=== PATIENT | female | born 1945 | race Caucasian/White ===

== ENCOUNTER → 2018-03-14 | Outpatient (CLI) | payer OTHER | LOC: M.RAD 10:15 | DX: Z12.31 Encounter for screening mammogram for malignant neoplasm of breast (principal) ==

== ENCOUNTER → 2018-05-28 | Outpatient (CLI) | payer OTHER ==
[2018-05-28 11:10] LABS: CREATININE 0.9 mg/dL (0.6-1.3)
== END ==
LOC: M.LAB 05-27 12:30 → M.MRI 05-27 13:30 → M.LAB 10:30
PROVIDERS: Nurse Practitioner Family
DX: I67.82 Cerebral ischemia (principal); H70.11 Chronic mastoiditis, right ear; Z85.818 Personal history of malignant neoplasm of other sites of lip, oral cavity, and pharynx